=== PATIENT | female | born 1985 | race Caucasian/White ===

== ENCOUNTER 2025-04-20 19:13 | Emergency (ER) | payer OTHER ==
[~2025-04-20] VITALS: Ht 167.6 cm; Wt 117.9 kg
[2025-04-20 19:40] VITALS: TEMP 98.2
[2025-04-20] MEDS ORDERED: MAG HYDROX/AL HYDROX/SIMETH 30 ML UDC ONE (19:47)
[2025-04-20] MEDS ORDERED: ONDANSETRON 4 MG TAB.RAPDIS ONE (19:48)
[2025-04-20] MEDS: MAG HYDROX/AL HYDROX/SIMETH 30 ML UDC PO ONE (19:49)
[2025-04-20] MEDS: ONDANSETRON 4 MG TAB.RAPDIS PO ONE (19:49)
[2025-04-20 20:10] LABS: BASOPHILS % (AUTO) 0.5 % (0.0-2.0); EOSINOPHILS # (AUTO) 0.1 K/uL (0.0-0.7); EOSINOPHILS % (AUTO) 1.5 % (0.0-6.0); HEMATOCRIT 43 % (33-45); HEMOGLOBIN 14.2 g/dL (11.5-14.8); LYMPHOCYTES # (AUTO) 1.1 K/uL (0.8-4.8); LYMPHOCYTES % (AUTO) 14.5 % (20.0-44.0); MEAN CORPUSCULAR HEMOGLOBIN 31 PG (26.0-33.0); MEAN CORPUSCULAR HGB CONC 33 g/dl (31.0-36.0); MEAN CORPUSCULAR VOLUME 92 fL (82-100); MONOCYTES # (AUTO) 0.8 K/uL (0.1-1.30); MONOCYTES % (AUTO) 10.9 % (2.0-12.0); NEUTROPHILS # (AUTO) 5.4 K/uL (1.8-8.9); NEUTROPHILS % (AUTO) 72.6 % (43.0-81.0); PLATELET COUNT (AUTO) 282 K/uL (150-450); RED BLOOD CELL COUNT(AUTO) 4.61 MIL/uL (4.0-5.2); RED CELL DISTRIBUTION WIDTH 14.1 % (11.5-15.0); WHITE BLOOD COUNT (AUTO) 7.4 K/uL (4.3-11.0)
[2025-04-20 20:13] LABS: CREATININE 0.9 mg/dL (0.6-1.3)
[2025-04-20 20:19] LABS: APPEARANCE,URINE CLEAR (CLEAR); BILIRUBIN,URINE Negative (NEGATIVE); BLOOD, URINE Large Ery/uL (NEGATIVE); COLOR,URINE YELLOW (YELLOW); KETONES,URINE Negative (NEGATIVE); LEUKOCYTE ESTERASE ,URINE Negative (NEGATIVE); PH,URINE 6.5 (5.0-8.0); PROTEIN,URINE Trace mg/dl (NEGATIVE); UGLUCOSE Negative (NEGATIVE)
[2025-04-20 20:20] LABS: ADD URINE CULTURE NO; BACTERIA,URINE Few /HPF (None Seen); NITRITE, URINE NEGATIVE (NEGATIVE); PREGNANCY TEST URINE QUAL NEGATIVE (NEGATIVE); SQUAMOUS EPITHELIAL CELL,UR Few /HPF (None Seen)
[2025-04-20 20:21] LABS: ALBUMIN 3.7 g/dL (3.4-5.0); BILIRUBIN,DIRECT 0.2 mg/dL (0.0-0.2); BILIRUBIN,TOTAL 0.9 mg/dL (0.2-1.0); TOTAL PROTEIN, SERUM 8.2 g/dL (6.4-8.2)
[2025-04-20] MEDS ORDERED: ONDA4TAB11 PO (20:49)
[2025-04-20] MEDS ORDERED: FAMO20TA80 PO (20:49)
[2025-04-20] MEDS ORDERED: MAG355OR35 PO (20:49)
[2025-04-20 20:57] VITALS: BP 132/77; O2SAT 98
== END 2025-04-20 20:57 | disposition home or self-care (01) ==
LOC: ER 19:15
DX: R19.7 Diarrhea, unspecified (principal); R11.0 Nausea; R10.13 Epigastric pain; F17.200 Nicotine dependence, unspecified, uncomplicated; Z60.2 Problems related to living alone; Z79.899 Other long term (current) drug therapy
CPT/HCPCS: 99283; 85025; 80048; 83690; 80076; 84703; 81001; 36415; Q0162